=== PATIENT | female | born 1965 | race Caucasian/White ===

== ENCOUNTER 2021-07-08 09:29 | Emergency (ER) | payer OTHER ==
[~2021-07-08] VITALS: Ht 157.5 cm; Wt 83.5 kg
[2021-07-08] MEDS ORDERED: PROZAC20 M1 PO (10:02)
[2021-07-08] MEDS ORDERED: BENICAR20 MG PO (10:02)
[2021-07-08 13:54] VITALS: BP 174/95
--- NOTE | 2021-07-08 14:18 | EKG ---
[place] [address] ELECTROCARDIOGRAM REPORT Name: CALEB VÁSQUEZ Room: [place]#: [id number] Admission: 07/08/21 Attend Phys: Discharge: 07/08/21 Date of : 63 Date of Service: 07/08/21 1324 Report #: [id number] THIS REPORT FOR: //name// [facility] ED Test Date: 2021-07-08 Test Time: 13:24:15 Pat Name: CALEB VÁSQUEZ Department: Room: Gender: F Medical Records Auditor: : [id number] Requested By: Pina Pugh Order Number: [id number] MD: Kris Ying Measurements Intervals [place] Rate: 49 P: 40 WI: 179 QRS: 0 QRSD: 104 T: 20 QT: 461 QTc: 417 Interpretive Statements Sinus bradycardia No previous ECG available for comparison Electronically Signed On 07-08-2021 14:18:41 CDT by Kris Ying [email or web address] <ELECTRONICALLY SIGNED> By: Kris Ying MD, [facility] 07/08/21 1418 1324 1324 Kris Ying MD, FAC /EPI
== END 2021-07-08 13:55 | disposition home or self-care (01) ==
LOC: M.ERS 09:29
DX: B34.9 Viral infection, unspecified (principal); Z20.822 Contact with and (suspected) exposure to COVID-19; I10 Essential (primary) hypertension; Z90.49 Acquired absence of other specified parts of digestive tract; Z98.51 Tubal ligation status; Z79.899 Other long term (current) drug therapy; Z88.2 Allergy status to sulfonamides